=== PATIENT | male | born 1945 | race Caucasian/White ===

== ENCOUNTER → 2016-06-23 | Outpatient (CLI) | payer OTHER ==
[2016-06-23 12:52] LABS: RED BLOOD COUNT 5.3 M/UL (4.20-5.50); WHITE BLOOD COUNT 7.6 K/UL (4.5-11.0)
== END ==
LOC: LAB 11:23
PROVIDERS: Nurse Practitioner
DX: M17.12 Unilateral primary osteoarthritis, left knee (principal); M25.50 Pain in unspecified joint; M25.462 Effusion, left knee
CPT/HCPCS: 36415; 73564; 84550; 85025

== ENCOUNTER → 2020-12-28 | Outpatient (CLI) | payer OTHER ==
[~2020-12-28] MED LIST: CYCLOBENZAPRINE10 MG PO; HYDROCODON-ACE1 EAC2 PO
[2020-12-28 09:31] LABS: HEMOGLOBIN 15.9 gm/dl (14.0-17.5); RED BLOOD COUNT 5.1 M/UL (4.20-5.50); WHITE BLOOD COUNT 6.2 K/UL (4.5-11.0)
[2020-12-28 09:51] LABS: BUN/CREATININE RATIO 15 (0-10)
[2020-12-29 08:13] LABS: THYROXINE (T4) 7.3 ug/dL (4.5-12.0); VITAMIN D, 25-HYDROXY 30.9 ng/mL (30.0-100.0)
== END ==
LOC: LAB 08:19
PROVIDERS: Nurse Practitioner
DX: I10 Essential (primary) hypertension (principal); E78.5 Hyperlipidemia, unspecified; E11.9 Type 2 diabetes mellitus without complications; K21.9 Gastro-esophageal reflux disease without esophagitis; M19.90 Unspecified osteoarthritis, unspecified site; R53.83 Other fatigue; E55.9 Vitamin D deficiency, unspecified
CPT/HCPCS: 36415; 80053; 80061; 81001; 83036; 84436; 84443; 84480; 85025

== ENCOUNTER → 2021-07-26 | Outpatient (CLI) | payer OTHER ==
[2021-07-26 09:02] LABS: HEMOGLOBIN 16.7 gm/dl (14.0-17.5); RED BLOOD COUNT 5.4 M/UL (4.20-5.50); WHITE BLOOD COUNT 6.5 K/UL (4.5-11.0)
== END ==
LOC: LAB 08:24
PROVIDERS: Nurse Practitioner Family
DX: E87.6 Hypokalemia (principal); I10 Essential (primary) hypertension
CPT/HCPCS: 36415; 80053; 85025